=== PATIENT | female | born 1980 ===

== ENCOUNTER 2020-02-18 06:54 | Outpatient (CLI) | payer OTHER ==
--- NOTE | 2020-02-18 08:48 | ULT ---
PELVIC ULTRASOUND: COMPARISON: None. HISTORY: Right-sided pelvic pain. TECHNIQUE: Multiplanar luna scale and color Doppler images were obtained in a transabdominal and transvaginal pe lvic ultrasound. Spectral analysis of the Doppler waveforms of the ovaries was performed. FINDINGS: Uterus is normal in size and appearance without focal abnormality. The endometrial stripe is upper l imits of normal in thickness measuring 10 mm. No free fluid is seen in the pelvis. Both ovaries are normal in size and appearance and demonstrate normal internal flow. IMPRESSION: Unremarkable pelvic ultrasound. POS: [facility]
== END 2020-02-18 06:55 | disposition home or self-care (01) ==
LOC: BICULT 06:54
PROVIDERS: ATTEND Obstetrics & Gynecology
DX: E28.2 Polycystic ovarian syndrome (principal); R10.2 Pelvic and perineal pain
CPT/HCPCS: 76856